=== PATIENT | male | born 1975 | race Caucasian/White ===

== ENCOUNTER 2024-04-13 20:57 | Emergency (ER) | payer OTHER ==
[2024-04-13 21:14] VITALS: BP 152/101; PULSE 61; RESP 16; TEMP 98.1; BMI 34.0
[2024-04-13] MEDS ORDERED: CYCLOBENZAPRINE HCL 5 MG TABLET ONE (21:45)
[2024-04-13] MEDS ORDERED: KETOROLAC TROMETHAMINE 60 MG/2 ML VIAL ONE (21:45)
[2024-04-13] MEDS: KETOROLAC TROMETHAMINE 60 MG/2 ML VIAL IM ONE (21:49)
[2024-04-13] MEDS: CYCLOBENZAPRINE HCL 10 MG TABLET (FP) PO ONE (21:49)
[2024-04-13] MEDS ORDERED: MECLIZINE HCL 25 MG TABLET (FP) ONE (22:44)
[2024-04-13] MEDS: MECLIZINE HCL 25 MG TABLET (FP) PO ONE (22:45)
== END 2024-04-13 23:11 | disposition home or self-care (01) ==
LOC: FER 20:57
PROC: 3E0133Z Introduction of Anti-inflammatory into Subcutaneous Tissue, Percutaneous Approach (ICD-10-PCS; principal; 2024-04-13)
DX: R42 Dizziness and giddiness (principal); M54.2 Cervicalgia
CPT/HCPCS: 70450-TC; 99284-25